=== PATIENT | female | born 1965 | race Caucasian/White ===

== ENCOUNTER → 2020-08-22 | Outpatient (CLI) | payer BC ==
[~2020-08-22] MED LIST: ACEDIPPM; ALPR.25 PO; BENADRYL25 MG PO; BUPR100 PO; BUPR150ER; BUPR150T2 PO; CLON.5 PO; CYCL10 PO; DIAZ5; LIDO5TP TOP; MELA3 PO; OMEP20ER PO; OXYACE5T PO; Percocet 5-3251 EACH PO; Prinivil10 MG PO; QUET200; TRAM50; Ultram50 MG PO; [UNRECOGNIZED DRUG - OTHER]
[2020-08-24 15:49] LABS: CORONAVIRUS (COVID19) CSH-NRL Negative (Negative)
== END | disposition home or self-care (01) ==
LOC: PLD 15:59
PROVIDERS: Internal Medicine
DX: Z20.828 Contact with and (suspected) exposure to other viral communicable diseases (principal)
CPT/HCPCS: U0003

== ENCOUNTER 2021-03-22 07:21 | Day surgery (SDC) | payer BC ==
[~2021-03-22] VITALS: Ht 172.7 cm; Wt 86.1 kg
[~2021-03-22 07:21] MED LIST changes: -BENADRYL25 MG PO
[2021-03-22] MEDS ORDERED: BENADRYL25 MG PO (07:36)
--- NOTE | 2021-03-22 07:54 | NUR ---
Ambulatory in Day SurgeryPatient states colon prep results clear. History, Chart, Medications and Allergies reviewed before start of procedure.Lungs clear T/O to Auscultation. Patient confirms NPO status and agrees with scheduled surgery. Pre-Op teaching done. Pt verbalizes understanding. Patient States Post-Procedure ride home has been arranged.
--- NOTE | 2021-03-22 08:16 | NUR ---
03/22/21 0816 Katharine Lance History, Chart, Medications and Allergies reviewed before start of procedure. Patient confirms NPO status and agrees with scheduled surgery. 3-LEAD EKG REVIEWED WITH PHYSICIAN PRIOR TO START OF PROCEDURE. MONITOR INTACT WITH CONTINUOUS PULSE OXIMETRY AND INTERMITTENT BP. PATIENT DETERMINED TO BE ASA APPROPRIATE FOR PROPOFOL SEDATION PRIOR TO START OF PROCEDURE BY .
--- NOTE | 2021-03-22 09:11 | NUR ---
Patient up to Ambulate independently. Gait steady. Discharge instructions reviewed with patient. Patient verbalizes understanding. Copy given to patient to take home. Discharged via wheelchair to private car for ride home.
== END 2021-03-22 09:00 | disposition home or self-care (01) ==
LOC: ORSCMMR 07:21 → ORD 08:00 → ORSCMMR 09:00
PROVIDERS: Internal Medicine Gastroenterology
PROC: 0DBN8ZX Excision of Sigmoid Colon, Via Natural or Artificial Opening Endoscopic, Diagnostic (ICD-10-PCS; principal; 2021-03-22 08:00)
DX: Z12.11 Encounter for screening for malignant neoplasm of colon (principal); Z86.010 Personal history of colon polyps; K63.5 Polyp of colon; I10 Essential (primary) hypertension; K21.9 Gastro-esophageal reflux disease without esophagitis; Z79.899 Other long term (current) drug therapy
CPT/HCPCS: 88305; J2704; J7120

== ENCOUNTER → 2023-05-10 | Outpatient (CLI) | payer BC ==
[~2023-05-10] MED LIST changes: +BENADRYL25 MG PO
== END ==
LOC: LAB SHORT 10:10 → LAB 10:10
DX: N39.0 Urinary tract infection, site not specified (principal)
CPT/HCPCS: 87086